=== PATIENT | female | born 1990 ===

== ENCOUNTER 2021-05-06 06:05 | Emergency (ER) | payer SELFPAY ==
[2021-05-06] MEDS ORDERED: OLANZapine 10 MG Vial IM ONE (06:40)
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
[2021-05-06] MEDS ORDERED: Haloperidol Lactate 5 MG/ML SDV IM ONE (08:01)
[2021-05-06] MEDS ORDERED: diphenhydrAMINE 50 MG/ML SDV IM ONE (08:01)
[2021-05-06] MEDS ORDERED: LORazepam 2 MG/ML SDV IM ONE (08:03)
== END 2021-05-06 10:07 | disposition home or self-care (01) ==
LOC: VM.ED 06:05
DX: R45.1 Restlessness and agitation (principal); R44.0 Auditory hallucinations; R44.1 Visual hallucinations
CPT/HCPCS: 96372; 99284; J1200; J1630; J2060; J3490